=== PATIENT | female | born 1960 | race Caucasian/White ===

== ENCOUNTER 2021-08-20 04:25 | Emergency (ER) | payer OTHER ==
[~2021-08-20] VITALS: Ht 160 cm; Wt 64.0 kg
[2021-08-20 04:25] VITALS: BP_SYST 159
--- NOTE | 2021-08-20 04:37 | NUR ---
ROOM IN 2, PT HAS BEEN FEELING NAUSEA AND VOMITING . PT ALSO FEELS DIZZY NO SKIN ISSUES. NO RESP DISTRESS. VOMITING FOR 1-2 DAYS. PT A&O X4, 20G IV INSERTED INTO THE LEFT FA.
[2021-08-20] MEDS ORDERED: NACL 0.9% 1,000 ML IV ONE (04:45)
[2021-08-20] MEDS ORDERED: ONDANSETRON HCL 4 MG/2 ML VIAL IVP ONE ×2 (04:45→05:15)
[2021-08-20] MEDS ORDERED: ONDANSETRON HCL 4 MG/2 ML VIAL ONE (04:47)
[2021-08-20] MEDS ORDERED: HYDR-3917 PO (04:49)
--- NOTE | 2021-08-20 05:06 | NUR ---
pt roomed c/o x1 day on/v and dizziness. pt has been ambulatory. no rep distress and no c/o pain, iv 20g lac. , care resumed ct arrived at bedside currently
[2021-08-20 05:10] LABS: CORRECTED WHITE BLOOD COUNT 5.3 K/uL (4.5-11.0); WHITE BLOOD COUNT (AUTO) 5.3 K/uL (4.8-10.8)
[2021-08-20 05:11] LABS: HEMATOCRIT 42.2 % (36-48); HEMOGLOBIN 14.5 g/dL (12.0-16.0); MEAN CORPUSCULAR HEMOGLOBIN 32 pg (27-31); MEAN CORPUSCULAR HGB CONC 34 % (32-36); MEAN CORPUSCULAR VOLUME 93 fL (79.0-98.0); PLATELET COUNT (AUTO) 232 K/uL (130-430); RED BLOOD CELL COUNT(AUTO) 4.54 MIL/uL (4.2-6.2); RED CELL DISTRIBUTION WIDTH 12.1 % (9.0-15.0)
[2021-08-20 05:12] LABS: BASOPHILS % (AUTO) 0.5 % (0.0-2.0); EOSINOPHILS # (AUTO) 0.1 K/uL (0.0-0.4); EOSINOPHILS % (AUTO) 1.4 % (0.0-4.0); LYMPHOCYTES # (AUTO) 0.8 K/uL (1.0-5.5); LYMPHOCYTES % (AUTO) 14.6 % (20.5-51.5); MONOCYTES # (AUTO) 0.3 K/uL (0.0-1.0); MONOCYTES % (AUTO) 6.5 % (1.7-9.3); NEUTROPHILS # (AUTO) 4.1 K/uL (1.8-7.7)
[2021-08-20] MEDS ORDERED: MECLIZINE HCL 25 MG TABLET (ANITVERT) ONE (05:12)
[2021-08-20] MEDS ORDERED: MECLIZINE HCL 25 MG TABLET (ANITVERT) PO ONE (05:15)
[2021-08-20 05:18] LABS: CALCIUM 9.5 mg/dL (8.4-11.0); CREATININE 0.8 mg/dL (0.55-1.30); POTASSIUM 3.5 mmol/L (3.5-5.1)
[2021-08-20 05:23] LABS: ALBUMIN 3.9 g/dL (3.4-4.8); TOTAL BILIRUBIN 0.2 mg/dL (0.0-1.0)
--- NOTE | 2021-08-20 05:35 | NUR ---
PT JUST TAKEN TO CT SCAN BY SHELL
[2021-08-20 06:15] LABS: CLARITY/URINE CLEAR (CLEAR); COLOR,URINE YELLOW (YELLOW); PH,URINE 7.5 (5.0-8.0)
[2021-08-20 06:16] LABS: BILIRUBIN,URINE NEGATIVE (NEGATIVE); BLOOD, URINE NEGATIVE (NEGATIVE); GLUCOSE,URINE NEGATIVE (NEGATIVE); KETONES,URINE NEGATIVE (NEGATIVE); LEUKOCYTE ESTERASE ,URINE NEGATIVE (NEGATIVE); NITRITE, URINE NEGATIVE (NEGATIVE); PROTEIN URINE 1+ (NEGATIVE); UROBILINOGEN,URINE 0.2 (0.2-1.0)
[2021-08-20] MEDS ORDERED: ONDA-8 TL (06:24)
[2021-08-20] MEDS ORDERED: MECL-160 PO (06:24)
[2021-08-20] MEDS ORDERED: PROCHLORPERAZINE EDISYLATE 10 MG/2 ML VIAL IVP ONE (06:45)
[2021-08-20] MEDS ORDERED: PROCHLORPERAZINE EDISYLATE 10 MG/2 ML VIAL ONE (06:54)
[2021-08-20] MEDS ORDERED: DIPHENHYDRAMINE INJ 50 MG/ML VIAL IVP ONE (07:00)
--- NOTE | 2021-08-20 07:10 | NUR ---
TRANSFER OF CARE AND REPORT GIVEN TO KARY WOODS.
[2021-08-20 07:15] VITALS: BP_SYST 163
--- NOTE | 2021-08-20 07:20 | NUR ---
RECEIVED PT IN BED #2, REPORT RECEIVED FROM PEGGY SUAREZ. PT IS STABLE, NAD, VSS, SLIGHTLY HYPERTENSIVE, STILL FEELS LIKE THE ROOM IS SPINNING. ED MD TO BEDSIDE TO DO FINAL EVALUATION FOR POSSIBLE DISCHARGE WITH DISPOSITION WITH PLAN OF CARE.
--- NOTE | 2021-08-20 07:45 | NUR ---
Patient given written and verbal discharge instructions and verbalizes understanding. ER MD discussed with patient the results and treatment provided. Patient in stable condition. ID arm band removed. IV catheter removed intact and dressing applied, no active bleeding. Rx of given. Patient educated on pain management and to follow up with [facility] for questions provided and answered. Medication side effect fact sheet provided.
== END 2021-08-20 07:45 | disposition home or self-care (01) ==
LOC: SED 04:25
DX: R42 Dizziness and giddiness (principal); R11.2 Nausea with vomiting, unspecified; I10 Essential (primary) hypertension; Z79.899 Other long term (current) drug therapy
CPT/HCPCS: 36415; 70450; 76376; 80053; 81003; 83690; 83880; 84484; 85025; 93005; 96361; 96374; 96375; 99285; J0780; J1200; J2405; J7030; J8597